=== PATIENT | female | born 1940 | race African-American/Black ===

== ENCOUNTER 2023-11-04 06:44 | Inpatient (IN) | payer OTHER ==
[2023-11-04] MEDS ORDERED: ACETAMINOPHEN 500 MG TABLET (FP) ONE (08:31)
[2023-11-04] MEDS: ACETAMINOPHEN 500 MG TABLET (FP) PO ONE (08:39)
[2023-11-04 10:25] LABS: BASO % 0.9 % (0-2.0); EOS % 0.1 % (0-4.5); HEMATOCRIT 36.1 % (32.4-45.2); MCH 26.7 pg (25.7-33.7); MCHC 33.1 g/dl (32.0-36.0); MEAN CELL VOLUME 80.8 fl (80-96); MONO % 3.6 % (3.8-10.2); NEUT % 76.4 % (42.8-82.8); PLATELET COUNT 413 10^3/uL (134-434); RBC 4.47 M/mm3 (3.60-5.2); RDW 15.8 % (11.6-15.6)
[2023-11-04 10:32] LABS: INR 1.1 (0.83-1.09); PROTHROMBIN TIME (PATIENT) 12.7 SEC (9.7-13.0)
[2023-11-04 10:34] LABS: ACTIVATED PTT 28.1 SECONDS (25.2-36.5)
[2023-11-04 10:55] LABS: POTASSIUM 3.6 mmol/L (3.5-5.1)
[2023-11-04 10:57] LABS: ALBUMIN 3.8 g/dl (3.4-5.0); CALCIUM 10.3 mg/dL (8.5-10.1)
[2023-11-04 11:01] LABS: CREATININE 0.8 mg/dL (0.55-1.3)
[2023-11-04 11:02] LABS: BILIRUBIN,TOTAL 0.4 mg/dL (0.2-1); TOT PROT 8.4 g/dl (6.4-8.2)
[2023-11-04] MEDS ORDERED: HYDROCHLOROTHIAZIDE 25 MG TABLET (FP) ONE (13:40)
[2023-11-04] MEDS ORDERED: amLODIPine BESYLATE 10 MG TABLET (FP) ONE (13:40)
[2023-11-04] MEDS: HYDROCHLOROTHIAZIDE 25 MG TABLET (FP) PO ONE (13:49)
[2023-11-04] MEDS: amLODIPine BESYLATE 10 MG TABLET (FP) PO ONE (13:50)
[2023-11-04] MEDS ORDERED: hydrALAZINE HCL 20 MG/ML VIAL ONE (14:53)
[2023-11-04] MEDS: hydrALAZINE HCL 20 MG/ML VIAL IVPUSH ONE (14:58)
[2023-11-04] MEDS ORDERED: LABETALOL HCL 5 MG/1 ML (100MG/20 ML VIAL) IVPUSH PRN (16:51)
[2023-11-04] MEDS: SODIUM CHLORIDE 0.9% 500 ML INFUS.BAG IV ONE (20:10)
[2023-11-04] MEDS: ACETAMINOPHEN 1000 MG/100 ML BAG IVPB ONE (21:43)
[2023-11-05 07:34] LABS: HEMATOCRIT 35.5 % (32.4-45.2); HEMOGLOBIN 11.6 GM/dL (10.7-15.3); MCH 26.5 pg (25.7-33.7); MCHC 32.5 g/dl (32.0-36.0); MEAN CELL VOLUME 81.3 fl (80-96); PLATELET COUNT 392 10^3/uL (134-434); RBC 4.37 M/mm3 (3.60-5.2); RDW 15.5 % (11.6-15.6); WHITE BLOOD COUNT 6.5 K/mm3 (4.0-10.0)
[2023-11-05 07:54] LABS: POTASSIUM 3.3 mmol/L (3.5-5.1)
[2023-11-05 08:03] LABS: ALBUMIN 3.5 g/dl (3.4-5.0); BLOOD UREA NITROGEN 14.9 mg/dL (7-18); CALCIUM 10.2 mg/dL (8.5-10.1)
[2023-11-05 08:04] LABS: MAGNESIUM 1.9 mg/dL (1.8-2.4)
[2023-11-05 08:06] LABS: CREATININE 0.8 mg/dL (0.55-1.3); PHOSPHOROUS 3.7 mg/dL (2.5-4.9)
[2023-11-05 08:07] LABS: BILIRUBIN,TOTAL 0.5 mg/dL (0.2-1)
[2023-11-05 08:08] LABS: TOT PROT 7.8 g/dl (6.4-8.2)
[2023-11-05] MEDS: ENOXAPARIN NA (PORCINE) 40 MG/0.4 ML DISP.SYRIN SQ SCH (09:20)
[2023-11-05] MEDS: amLODIPine BESYLATE 10 MG TABLET (FP) PO SCH (09:20)
[2023-11-05] MEDS: LOSARTAN POTASSIUM 25 MG TABLET PO SCH (09:20)
[2023-11-05] MEDS ORDERED: LOSARTAN POTASSIUM 50 MG TABLET PO SCH (11:29)
[2023-11-05] MEDS: POTASSIUM CHLORIDE ORAL LIQUID 20 MEQ/15 ML PO ONE (12:09)
[2023-11-05] MEDS: ACETAMINOPHEN 1000 MG/100 ML BAG IVPB PRN (21:32)
[2023-11-06] MEDS ORDERED: LABETALOL HCL 5 MG/1 ML (100MG/20 ML VIAL) IVPUSH PRN (02:55)
[2023-11-06 07:37] LABS: BASO % 1.2 % (0-2.0); EOS % 0.8 % (0-4.5); HEMATOCRIT 35.8 % (32.4-45.2); HEMOGLOBIN 11.6 GM/dL (10.7-15.3); LYMPH % 25.2 % (8-40); MCH 26.2 pg (25.7-33.7); MCHC 32.3 g/dl (32.0-36.0); MEAN CELL VOLUME 80.9 fl (80-96); MEAN PLT VOLUME 7.3 fl (7.5-11.1); MONO % 6.1 % (3.8-10.2); NEUT % 66.7 % (42.8-82.8); PLATELET COUNT 394 10^3/uL (134-434); RBC 4.42 M/mm3 (3.60-5.2); RDW 15.5 % (11.6-15.6); WHITE BLOOD COUNT 5.5 K/mm3 (4.0-10.0)
[2023-11-06 07:55] LABS: POTASSIUM 3.9 mmol/L (3.5-5.1)
[2023-11-06 08:00] LABS: BLOOD UREA NITROGEN 12.4 mg/dL (7-18); CALCIUM 9.9 mg/dL (8.5-10.1); MAGNESIUM 1.7 mg/dL (1.8-2.4)
[2023-11-06 08:01] LABS: ALBUMIN 3.3 g/dl (3.4-5.0)
[2023-11-06 08:03] LABS: PHOSPHOROUS 3.6 mg/dL (2.5-4.9)
[2023-11-06 08:04] LABS: CREATININE 0.7 mg/dL (0.55-1.3)
[2023-11-06 08:05] LABS: BILIRUBIN,TOTAL 0.5 mg/dL (0.2-1); TOT PROT 7.4 g/dl (6.4-8.2)
[2023-11-06] MEDS: ENOXAPARIN NA (PORCINE) 40 MG/0.4 ML DISP.SYRIN SQ SCH (09:59)
[2023-11-06] MEDS: amLODIPine BESYLATE 10 MG TABLET (FP) PO SCH (09:59)
[2023-11-06] MEDS: LOSARTAN POTASSIUM 25 MG TABLET PO SCH (10:00)
[2023-11-06] MEDS: traMADol HCL 50 MG TABLET PO PRN (19:37)
[2023-11-07] MEDS ORDERED: ACETAMINOPHEN 325 MG TABLET (FP) PO PRN (07:45)
[2023-11-07] MEDS ORDERED: traMADol HCL 50 MG TABLET PO PRN (07:45)
[2023-11-08] MEDS: POLYETHYLENE GLYCOL (HEALTHYLAX) 3350 17 GM PACKET PO ONE (05:16)
[2023-11-09] MEDS: ACETAMINOPHEN 325 MG TABLET (FP) PO PRN (09:26)
[2023-11-09] MEDS: LOSARTAN POTASSIUM 50 MG TABLET PO SCH (10:03)
[2023-11-09] MEDS: ACETAMINOPHEN 500 MG TABLET (FP) PO PRN (10:03)
[2023-11-09 12:26] VITALS: BMI 18.6
[2023-11-11 08:46] LABS: BASO % 1.2 % (0-2.0); EOS % 0.7 % (0-4.5); HEMATOCRIT 32.5 % (32.4-45.2); HEMOGLOBIN 10.6 GM/dL (10.7-15.3); LYMPH % 28.5 % (8-40); MCH 26.7 pg (25.7-33.7); MCHC 32.8 g/dl (32.0-36.0); MEAN CELL VOLUME 81.4 fl (80-96); MEAN PLT VOLUME 7.8 fl (7.5-11.1); MONO % 6.8 % (3.8-10.2); NEUT % 62.8 % (42.8-82.8); PLATELET COUNT 378 10^3/uL (134-434); RBC 3.99 M/mm3 (3.60-5.2); RDW 15.4 % (11.6-15.6); WHITE BLOOD COUNT 5.6 K/mm3 (4.0-10.0)
[2023-11-11 08:53] LABS: ACTIVATED PTT 25.4 SECONDS (25.2-36.5)
[2023-11-11 08:56] LABS: INR 1.02 (0.83-1.09); PROTHROMBIN TIME (PATIENT) 11.8 SEC (9.7-13.0)
[2023-11-11 09:03] LABS: POTASSIUM 4.1 mmol/L (3.5-5.1)
[2023-11-11 09:09] LABS: CALCIUM 9.6 mg/dL (8.5-10.1)
[2023-11-11 09:11] LABS: ALBUMIN 3.3 g/dl (3.4-5.0); BLOOD UREA NITROGEN 20.4 mg/dL (7-18); MAGNESIUM 1.9 mg/dL (1.8-2.4)
[2023-11-11 09:13] LABS: PHOSPHOROUS 3.3 mg/dL (2.5-4.9)
[2023-11-11 09:14] LABS: CREATININE 0.7 mg/dL (0.55-1.3)
[2023-11-11 09:15] LABS: BILIRUBIN,TOTAL 0.3 mg/dL (0.2-1); TOT PROT 7.2 g/dl (6.4-8.2)
[2023-11-15 00:17] VITALS: RESP 18
[2023-11-15 19:44] VITALS: BP 152/89; PULSE 82; TEMP 98.5
== END 2023-11-15 17:59 | disposition home health service (06) | DRG 304 ==
LOC: JER 06:44 → JERBED 11:37 → J2W 15:41 → J5S 11-06 02:28
PROVIDERS: ADMIT Internal Medicine
DX: I16.0 Hypertensive urgency (principal); E43 Unspecified severe protein-calorie malnutrition; S52.252A Displaced comminuted fracture of shaft of ulna, left arm, initial encounter for closed fracture; T74.91XA Unspecified adult maltreatment, confirmed, initial encounter; Z68.1 Body mass index [BMI] 19.9 or less, adult; E78.5 Hyperlipidemia, unspecified; R07.89 Other chest pain; I10 Essential (primary) hypertension; E87.6 Hypokalemia; M79.622 Pain in left upper arm; Y08.89XA Assault by other specified means, initial encounter; Y92.098 Other place in other non-institutional residence as the place of occurrence of the external cause; Y99.9 Unspecified external cause status
CPT/HCPCS: 36415; 70450-TC; 71045-TC-FY; 73030-TC-LT-FY; 73060-TC-LT-FY; 73070-TC-LT-FY; 73090-TC-LT-FY; 73110-TC-LT-FY; 73130-TC-LT-FY; 80053; 80061; 82550; 83036; 83735; 84100; 84484; 85025; 85027; 85610; 85730; 93005; 93010; 93306-TC; 93880-TC; 97116-GP; 97161-GP; 99285-25; J0131

== ENCOUNTER 2023-12-18 12:35 | Emergency (ER) | payer OTHER ==
[2023-12-18 12:57] VITALS: BP 161/87; PULSE 80; RESP 18; TEMP 99.1; BMI 18.1
== END 2023-12-18 14:04 | disposition home or self-care (01) ==
LOC: FER 12:35
DX: Z48.01 Encounter for change or removal of surgical wound dressing (principal)
CPT/HCPCS: 99281-25